=== PATIENT | female | born 1945 | race Caucasian/White ===

== ENCOUNTER 2017-12-31 17:05 | Inpatient (IN) | payer MEDICARE, OTHER ==
[~2017-12-31] VITALS: Ht 157.5 cm; Wt 60.0 kg
[~2017-12-31 17:05] MED LIST: HYDR-569 PO
[2017-12-31] MEDS ORDERED: acetaminophen 325mg tablet PO ONE (17:40)
[2017-12-31] MEDS ORDERED: normal saline 1000ml 1,000 ML IV ONE (17:40)
[2017-12-31] MEDS ORDERED: fentaNYL/PF 50MCG/1 ML 2ML syringe IV ONE ×2 (18:30→20:40)
[2017-12-31 21:01] LABS: BASOPHILS # (AUTO) 0.1 X10'3 (0-0.2); BASOPHILS % (AUTO) 0.5 % (0-1); EOSINOPHILS # (AUTO) 0.3 X10'3 (0-0.9); EOSINOPHILS % (AUTO) 2.4 % (0-6); HEMATOCRIT 34.9 % (35.0-45.0); HEMOGLOBIN 11.3 g/dl (12.0-16.0); LYMPHOCYTES # (AUTO) 2.4 X10'3 (1.1-4.8); LYMPHOCYTES % (AUTO) 19.2 % (21-51); MEAN CORPUSCULAR HEMOGLOBIN 30.8 PG (27.0-31.0); MEAN CORPUSCULAR HGB CONC 32.3 % (33.0-36.5); MEAN CORPUSCULAR VOLUME 95.3 FL (78-98); MEAN PLATELET VOLUME 7.5 FL (7.4-10.4); MONOCYTES # (AUTO) 0.8 X10'3 (0-0.9); MONOCYTES % (AUTO) 6.9 % (2-12); NEUTROPHILS # (AUTO) 8.7 X10'3 (1.8-7.7); PLATELET COUNT 262 X10'3 (140-440); RED BLOOD COUNT 3.66 X10'6 (4.20-5.60); RED CELL DISTRIBUTION WIDTH 16.3 % (11.5-14.5); WHITE BLOOD COUNT 12.3 X10'3 (4.5-11.0)
[2017-12-31 21:19] LABS: ALANINE AMINOTRANSFERASE 15 U/L (12-78); ALBUMIN/GLOBULIN RATIO 1.1 (1.1-1.5); ALKALINE PHOSPHATASE 81 IU/L (46-116); ANION GAP 15 (8-16); ASPARTATE AMINO TRANSFERASE 11 U/L (10-37); BILIRUBIN,TOTAL 0.4 MG/DL (0.1-1.0); BLOOD UREA NITROGEN 14 MG/DL (7-18); BUN/CREATININE RATIO 11.8 (6.6-38.0); CALCIUM 7.1 MG/DL (8.5-10.1); CHLORIDE 113 MMOL/L (99-107); CREATININE 1.19 MG/DL (0.40-0.90); GLUCOSE 89 MG/DL (70-104); SODIUM 145 MMOL/L (135-145); TOTAL CARBON DIOXIDE 17.4 MMOL/L (24-32); TOTAL PROTEIN 5.7 G/DL (6.4-8.2); eGFR 44 ML/MIN
[2017-12-31 21:26] LABS: POTASSIUM 2.7 MMOL/L (3.5-5.1)
[2017-12-31] MEDS ORDERED: potassium Cl 20 mEq SR tablet PO STA (21:40)
[2017-12-31] MEDS ORDERED: potassium Cl 10 mEq/100mL bag IV ONE (21:40)
[2017-12-31 21:56] LABS: MAGNESIUM 1.3 MG/DL (1.5-2.4)
[2017-12-31] MEDS ORDERED: potassium 10mEq/100ml NS w/LIDOcaine (10mg/bag) IV ONE (22:00)
[2017-12-31] MEDS ORDERED: magnesium 2GM in 50ml NS 50 ML IV ONE (23:20)
[2017-12-31] MEDS ORDERED: magnesium hydroxide 30ml (MOM) UD suspension PO PRN (23:50)
[2017-12-31] MEDS ORDERED: potassium Cl 20mEq in NS 1,000 ML IV SCH (23:50)
[2017-12-31] MEDS ORDERED: mag hydrox/Alum hydrox/simeth 30ml oral suspension PO PRN (23:50)
[2017-12-31] MEDS ORDERED: acetaminophen 325mg tablet PO PRN (23:50)
[2017-12-31] MEDS ORDERED: ALLO100T PO (23:59)
[2018-01-01] VITALS (20 sets, daily range): BP systolic 92–123; BP diastolic 30–70
[2018-01-01] MEDS ORDERED: SYN0.088T PO
[2018-01-01] MEDS ORDERED: CALC-258
[2018-01-01] MEDS ORDERED: ATOR40TA3 PO
[2018-01-01] MEDS ORDERED: MAGN400C PO
[2018-01-01] MEDS ORDERED: ALPR1TAB2 PO
[2018-01-01] MEDS ORDERED: potassium Cl 20mEq in NS 1,000 ML IV ONE (01:27)
[2018-01-01] MEDS: morphine 4 MG/ML inj SYRINge IV PRN ×2 (01:47→09:46)
[2018-01-01 02:11] LABS: CLARITY,URINE CLEAR (Clear); COLOR,URINE YELLOW (Yellow); GLUCOSE, URINE NEGATIVE (Neg); KETONES,URINE NEGATIVE (Neg); LEUKOCYTE ESTERASE ,URINE NEGATIVE (Neg); NITRITES, URINE NEGATIVE (Neg); OCCULT BLOOD,URINE TRACE-INTACT (Neg); PROTEIN,URINE TRACE mg/dl (Neg); UROBILINOGEN,URINE 0.2 E.U/dL (0.2-1.0)
[2018-01-01 02:17] LABS: UA COLLECTION TYPE FOLEY CATH
[2018-01-01 02:21] LABS: BACTERIA,URINE NONE SEEN /HPF (Neg); MUCUS STRANDS NONE SEEN /LPF (Neg); RBC,URINE NONE SEEN /HPF (0-2); SQUAMOUS EPITHELIAL CELL,UR FEW /LPF (FEW); WBC,URINE NONE SEEN /HPF (0-4)
[2018-01-01 06:59] LABS: BASOPHILS % (AUTO) 0.5 % (0-1); EOSINOPHILS # (AUTO) 0.2 X10'3 (0-0.9); EOSINOPHILS % (AUTO) 2.8 % (0-6); HEMATOCRIT 32.7 % (35.0-45.0); HEMOGLOBIN 10.8 g/dl (12.0-16.0); LYMPHOCYTES # (AUTO) 2.2 X10'3 (1.1-4.8); MEAN CORPUSCULAR HEMOGLOBIN 30.9 PG (27.0-31.0); MEAN CORPUSCULAR VOLUME 93.6 FL (78-98); MEAN PLATELET VOLUME 8.1 FL (7.4-10.4); MONOCYTES # (AUTO) 0.7 X10'3 (0-0.9); MONOCYTES % (AUTO) 7.9 % (2-12); NEUTROPHILS # (AUTO) 5.4 X10'3 (1.8-7.7); NEUTROPHILS % (AUTO) 62.8 % (42-75); PLATELET COUNT 255 X10'3 (140-440); RED BLOOD COUNT 3.49 X10'6 (4.20-5.60); RED CELL DISTRIBUTION WIDTH 15.4 % (11.5-14.5); WHITE BLOOD COUNT 8.6 X10'3 (4.5-11.0)
[2018-01-01 07:30] LABS: ALANINE AMINOTRANSFERASE 15 U/L (12-78); ALBUMIN 2.6 G/DL (3.4-5.0); ALKALINE PHOSPHATASE 66 IU/L (46-116); ANION GAP 13 (8-16); ASPARTATE AMINO TRANSFERASE 11 U/L (10-37); BILIRUBIN,TOTAL 0.4 MG/DL (0.1-1.0); BLOOD UREA NITROGEN 11 MG/DL (7-18); BUN/CREATININE RATIO 10.8 (6.6-38.0); CALCIUM 7.2 MG/DL (8.5-10.1); CHLORIDE 118 MMOL/L (99-107); CREATININE 1.02 MG/DL (0.40-0.90); GLUCOSE 79 MG/DL (70-104); POTASSIUM 3.1 MMOL/L (3.5-5.1); SODIUM 150 MMOL/L (135-145); TOTAL CARBON DIOXIDE 19.5 MMOL/L (24-32); TOTAL PROTEIN 5.3 G/DL (6.4-8.2); eGFR 53 ML/MIN
[2018-01-01] MEDS ORDERED: potassium Cl 20 mEq SR tablet PO PRN (07:55)
[2018-01-01] MEDS ORDERED: potassium Cl 40MEQ/NS 500ml 500 ML IV PRN ×2 (07:55)
[2018-01-01] MEDS: heparin, porcine 5000 units/ml vial SQ SCH ×2 (08:00→20:00)
[2018-01-01] MEDS: potassium Cl 20 mEq SR tablet PO PRN ×3 (08:16→20:02)
[2018-01-01] MEDS: potassium CL 20mEq in D5-1/2NS 1,000 ML IV SCH ×2 (10:57→17:40)
[2018-01-01] MEDS ORDERED: ceFAZolin 1000mg inj ONE (11:30)
[2018-01-01] MEDS ORDERED: proCHLORperazine 10 MG/2 ml inj IV PRN (11:55)
[2018-01-01] MEDS ORDERED: meperidine/PF 25mg/ml syringe IV PRN ×3 (11:55)
[2018-01-01] MEDS ORDERED: ondansetron/PF 4mg/2ml inj IV PRN (11:55)
[2018-01-01] MEDS ORDERED: morphine 4 MG/ML inj SYRINge IV PRN ×2 (11:55)
[2018-01-01] MEDS ORDERED: ringers solution, lacted 1,000 ML IV SCH (11:55)
[2018-01-01] MEDS ORDERED: ceFAZolin 1GM/D5W- ADD-VANTAGE 50 ML IV ONE (12:00)
[2018-01-01] MEDS ORDERED: sevoflurane 250ml liquid IH ONE (12:38)
[2018-01-01] MEDS ORDERED: midazolam 2 mg/2 ml injection ONE (12:48)
[2018-01-01] MEDS ORDERED: propofol inj 20 ML IV ONE (13:03)
[2018-01-01] MEDS ORDERED: LIDOcaine 1%/PF (10mg/ml) 5ml vial ONE (13:03)
[2018-01-01] MEDS ORDERED: fentaNYL/PF 50MCG/1 ML 2ML syringe ONE (13:03)
[2018-01-01] MEDS ORDERED: ROPIVAcaine 0.5% (5mg/ml) 30ml vial IJ ONE (13:15)
[2018-01-01] MEDS ORDERED: HYDROcodone/acetaminophen 5mg/325mg tablet PO PRN (15:45)
[2018-01-01] MEDS: ondansetron/PF 4mg/2ml inj IV PRN (17:26)
[2018-01-01] MEDS ORDERED: traMADol 50MG tablet PO PRN (18:00)
[2018-01-01] MEDS: ceFAZolin 1GM/D5W- ADD-VANTAGE 50 ML IV SCH (20:00)
[2018-01-01] MEDS: traMADol 50MG tablet PO PRN (20:04)
[2018-01-01] MEDS: atorvastatin 20mg tablet PO SCH (21:46)
[2018-01-02] VITALS (15 sets, daily range): BP systolic 65–144; BP diastolic 43–82
[2018-01-02] MEDS: traMADol 50MG tablet PO PRN ×4 (00:30→16:38)
[2018-01-02] MEDS: ceFAZolin 1GM/D5W- ADD-VANTAGE 50 ML IV SCH ×2 (00:30→09:37)
[2018-01-02] MEDS: potassium CL 20mEq in D5-1/2NS 1,000 ML IV SCH (03:53)
[2018-01-02 06:07] LABS: BASOPHILS % (AUTO) 0.1 % (0-1); EOSINOPHILS # (AUTO) 0.2 X10'3 (0-0.9); EOSINOPHILS % (AUTO) 2.1 % (0-6); HEMATOCRIT 33.6 % (35.0-45.0); LYMPHOCYTES # (AUTO) 1.5 X10'3 (1.1-4.8); LYMPHOCYTES % (AUTO) 13.3 % (21-51); MEAN CORPUSCULAR HGB CONC 32.7 % (33.0-36.5); MEAN CORPUSCULAR VOLUME 94.9 FL (78-98); MEAN PLATELET VOLUME 7.7 FL (7.4-10.4); MONOCYTES # (AUTO) 0.6 X10'3 (0-0.9); MONOCYTES % (AUTO) 5.2 % (2-12); NEUTROPHILS # (AUTO) 8.8 X10'3 (1.8-7.7); NEUTROPHILS % (AUTO) 79.3 % (42-75); PLATELET COUNT 228 X10'3 (140-440); RED BLOOD COUNT 3.54 X10'6 (4.20-5.60); RED CELL DISTRIBUTION WIDTH 15.7 % (11.5-14.5); WHITE BLOOD COUNT 11.2 X10'3 (4.5-11.0)
[2018-01-02] MEDS ORDERED: normal saline 500ml IV soln 1,000 ML IV ONE (07:15)
[2018-01-02 07:16] LABS: ALANINE AMINOTRANSFERASE 15 U/L (12-78); ALBUMIN 2.4 G/DL (3.4-5.0); ALBUMIN/GLOBULIN RATIO 0.8 (1.1-1.5); ALKALINE PHOSPHATASE 68 IU/L (46-116); ANION GAP 13 (8-16); ASPARTATE AMINO TRANSFERASE 14 U/L (10-37); BILIRUBIN,TOTAL 0.3 MG/DL (0.1-1.0); BLOOD UREA NITROGEN 7 MG/DL (7-18); BUN/CREATININE RATIO 7.5 (6.6-38.0); CALCIUM 7.2 MG/DL (8.5-10.1); CHLORIDE 111 MMOL/L (99-107); CREATININE 0.93 MG/DL (0.40-0.90); GLUCOSE 105 MG/DL (70-104); MAGNESIUM 1.1 MG/DL (1.5-2.4); POTASSIUM 3.9 MMOL/L (3.5-5.1); SODIUM 143 MMOL/L (135-145); TOTAL CARBON DIOXIDE 18.8 MMOL/L (24-32); TOTAL PROTEIN 5.5 G/DL (6.4-8.2); eGFR 59 ML/MIN
[2018-01-02] MEDS: magnesium oxide 400mg tablet PO SCH (09:37)
[2018-01-02] MEDS: allopurinol 100mg tablet PO SCH (09:37)
[2018-01-02] MEDS: levoTHYROXINE 88mcg tablet PO SCH (09:37)
[2018-01-02] MEDS: heparin, porcine 5000 units/ml vial SQ SCH ×2 (09:38→19:58)
[2018-01-02] MEDS: normal saline 1000ml 1,000 ML IV SCH ×2 (12:00→17:24)
[2018-01-02] MEDS: magnesium Cl slow-release 64mg tablet PO PRN ×2 (13:17→19:57)
[2018-01-02] MEDS: ondansetron/PF 4mg/2ml inj IV PRN (19:54)
[2018-01-02] MEDS: atorvastatin 20mg tablet PO SCH (19:57)
[2018-01-03] MEDS: ondansetron/PF 4mg/2ml inj IV PRN (05:08)
[2018-01-03 05:33] LABS: BASOPHILS # (AUTO) 0.1 X10'3 (0-0.2); BASOPHILS % (AUTO) 0.5 % (0-1); EOSINOPHILS # (AUTO) 0.3 X10'3 (0-0.9); EOSINOPHILS % (AUTO) 2.8 % (0-6); HEMATOCRIT 35.3 % (35.0-45.0); HEMOGLOBIN 11.6 g/dl (12.0-16.0); LYMPHOCYTES # (AUTO) 1.5 X10'3 (1.1-4.8); LYMPHOCYTES % (AUTO) 14.8 % (21-51); MEAN CORPUSCULAR HEMOGLOBIN 31.1 PG (27.0-31.0); MEAN CORPUSCULAR VOLUME 94.3 FL (78-98); MEAN PLATELET VOLUME 7.7 FL (7.4-10.4); MONOCYTES # (AUTO) 0.5 X10'3 (0-0.9); MONOCYTES % (AUTO) 4.9 % (2-12); PLATELET COUNT 253 X10'3 (140-440); RED BLOOD COUNT 3.74 X10'6 (4.20-5.60); RED CELL DISTRIBUTION WIDTH 15.9 % (11.5-14.5); WHITE BLOOD COUNT 10.4 X10'3 (4.5-11.0)
[2018-01-03 05:53] LABS: ALANINE AMINOTRANSFERASE 15 U/L (12-78); ALBUMIN 2.6 G/DL (3.4-5.0); ALBUMIN/GLOBULIN RATIO 0.7 (1.1-1.5); ALKALINE PHOSPHATASE 80 IU/L (46-116); ANION GAP 10 (8-16); ASPARTATE AMINO TRANSFERASE 14 U/L (10-37); BILIRUBIN,TOTAL 0.4 MG/DL (0.1-1.0); BLOOD UREA NITROGEN 6 MG/DL (7-18); CALCIUM 7.7 MG/DL (8.5-10.1); CHLORIDE 110 MMOL/L (99-107); GLUCOSE 99 MG/DL (70-104); MAGNESIUM 1.4 MG/DL (1.5-2.4); POTASSIUM 3.5 MMOL/L (3.5-5.1); SODIUM 143 MMOL/L (135-145); TOTAL CARBON DIOXIDE 22.7 MMOL/L (24-32); TOTAL PROTEIN 6.2 G/DL (6.4-8.2); eGFR 54 ML/MIN
[2018-01-03 06:00] VITALS: BP 101/50
[2018-01-03] MEDS ORDERED: proCHLORperazine 10 MG/2 ml inj IV PRN ×2 (07:55)
[2018-01-03] MEDS ORDERED: TRAM50TA2 PO (08:47)
[2018-01-03] MEDS ORDERED: MAGN400C PO (08:56)
[2018-01-03] MEDS: magnesium Cl slow-release 64mg tablet PO PRN (10:00)
[2018-01-03] MEDS: levoTHYROXINE 88mcg tablet PO SCH (10:00)
[2018-01-03] MEDS: allopurinol 100mg tablet PO SCH (10:01)
[2018-01-03] MEDS: magnesium oxide 400mg tablet PO SCH (10:01)
[2018-01-03] MEDS: heparin, porcine 5000 units/ml vial SQ SCH (10:02)
[2018-01-03] MEDS ORDERED: APIX2.5T PO (10:32)
== END 2018-01-03 10:45 | disposition home or self-care (01) | DRG 481 ==
LOC: ER 17:06 → ED HOLD 23:50 → ORTHO 4S 01-01 00:35
PROVIDERS: ADMIT Internal Medicine; ATTEND Internal Medicine
PROC: 0QS706Z Reposition Left Upper Femur with Intramedullary Internal Fixation Device, Open Approach (ICD-10-PCS; principal; 2018-01-01 12:38)
DX: S72.145A Nondisplaced intertrochanteric fracture of left femur, initial encounter for closed fracture (principal); E87.0 Hyperosmolality and hypernatremia; E83.42 Hypomagnesemia; W01.0XXA Fall on same level from slipping, tripping and stumbling without subsequent striking against object, initial encounter; E03.9 Hypothyroidism, unspecified; M81.0 Age-related osteoporosis without current pathological fracture; E78.5 Hyperlipidemia, unspecified; E87.6 Hypokalemia; F41.9 Anxiety disorder, unspecified; K52.9 Noninfective gastroenteritis and colitis, unspecified; F17.210 Nicotine dependence, cigarettes, uncomplicated; M10.9 Gout, unspecified; I25.10 Atherosclerotic heart disease of native coronary artery without angina pectoris; M19.90 Unspecified osteoarthritis, unspecified site; Z79.899 Other long term (current) drug therapy; Z79.01 Long term (current) use of anticoagulants; Y93.89 Activity, other specified; Y92.89 Other specified places as the place of occurrence of the external cause; Y99.8 Other external cause status; Z90.49 Acquired absence of other specified parts of digestive tract
CPT/HCPCS: 36415; 71045; 73501; 73502; 73564; 73700; 76000; 80053; 81001; 83735; 85025; 87070; 93005; 96361; 96365; 96375; 97116; 97162; 97530; 99285; A4315; A6212; A6255; A6257; A6449; A7000; J0690; J0780; J1644; J2001; J2175; J2250; J2270; J2405; J2704; J2795; J3010; J3370; J3475; J3480; J7030; J7120